=== PATIENT | female | born 1995 | race Caucasian/White ===

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

== ENCOUNTER 2019-05-24 04:47 | Observation (INO) | END 2019-05-24 05:03 | disposition home or self-care (01) | LOC: 1NENULAB | PROVIDERS: ADMIT Registered Nurse; ATTEND Registered Nurse ==

== ENCOUNTER 2019-06-02 06:00 | Inpatient (IN) ==
[2019-06-02] MEDS ORDERED: Metoclopramide 10 MG/2 ML VIAL IVP PRN (06:19)
[2019-06-02] MEDS ORDERED: miSOPROStoL 25 MCG TABLET PO PRN (06:19)
[2019-06-02] MEDS ORDERED: Famotidine 20 MG/2 ML VIAL IVP PRN (06:19)
[2019-06-02] MEDS ORDERED: *HR* Nalbuphine 10 MG/ML AMPUL IVP PRN (06:19)
[2019-06-02] MEDS ORDERED: Ondansetron 4 MG/2 ML VIAL IVP PRN (06:19)
[2019-06-02] MEDS ORDERED: Naloxone 0.4 MG/ML INJ IVP PRN (06:19)
[2019-06-02] MEDS ORDERED: Lidocaine 1% 20 ML MDV INFILT PRN (06:19)
[2019-06-02] MEDS ORDERED: Ringers Solution, Lactated 1,000 ML IVC SCH (06:30)
[2019-06-02 07:06] LABS: Basophils % 0.2 %; Eosinophils # 0.1 K/mcL (0.0-0.6); Hematocrit 34.6 % (35.3-44.9); Hemoglobin 11.2 g/dL (11.5-15.4); Immature Granulocytes % 0.5 % (0-4); Lymphocytes # 2.8 K/mcL (0.6-4.6); Lymphocytes % 26.6 %; Mean Corpuscular HGB Conc 32.4 g/dL (31.6-35.5); Mean Corpuscular Hemoglobin 25.5 pg (28.0-33.3); Mean Corpuscular Volume 78.6 fL (83.0-100.0); Mean Platelet Volume 10.4 fL (9.4-12.4); Monocytes # 0.7 K/mcL (0.0-1.3); Monocytes % 6.9 %; Neutrophils # 6.9 K/mcL (1.6-8.9); Platelet Count 196 K/mcL (140-400); Segmented Neutrophils % 64.8 %; White Blood Count 10.7 K/mcL (4.3-11.1)
[2019-06-02 07:20] LABS: Amphetamine Screen,Urine Negative ng/mL (Cutoff=1000); Barbiturate Screen,Urine Negative ng/mL (Cutoff=200); Benzodiazepines Screen,Urine Negative ng/mL (Cutoff=300); Cannabinoid Screen,Urine Negative ng/mL (Cutoff = 50); Cocaine Screen,Urine Negative ng/mL (Cutoff= 300); Opiate Screen,Urine Negative ng/mL (Cutoff=300); Phencyclidine Screen,Urine Negative ng/mL (Cutoff=25)
[2019-06-02] MEDS: Oxytocin 20 units/ LR 1000 mL 20 UNIT/1,000 ML BAG IVC SCH ×2 (08:42→20:08)
[2019-06-02] MEDS ORDERED: *HR* FentaNYL (PF) 100 MCG/2 ML VIAL ONE (15:56)
[2019-06-02] MEDS ORDERED: Bupivacaine/EPI 1:200k 0.25%PF 10 ML VIAL INFILT ONE (15:56)
[2019-06-02] MEDS ORDERED: Epidural Premix (fent/bupiv) 110 ML EP SCH (16:00)
[2019-06-02] MEDS ORDERED: Oxytocin 20 units/ LR 1000 mL 20 UNIT/1,000 ML BAG IVC SCH (21:55)
[2019-06-02] MEDS ORDERED: Lanolin 7 G OINT...G. TP PRN (21:55)
[2019-06-02] MEDS ORDERED: Benzocaine/Menthol 56 GM AEROSOL SPRAY TP PRN (21:55)
[2019-06-02] MEDS ORDERED: Rho Immune Globulin 1,500 UNIT SYRINGE IM PRN (21:55)
[2019-06-03] MEDS: Ibuprofen 600 MG TABLET PO SCH ×4 (00:32→08:25)
[2019-06-03] MEDS: Acetaminophen 325 MG TABLET PO SCH ×3 (00:32→13:41)
[2019-06-03 08:01] VITALS: BP 117/71
[2019-06-03] MEDS ORDERED: Famotidine 20 MG TABLET PO SCH (09:00)
[2019-06-03] MEDS ORDERED: Prenatal Vit/FA 1 EACH TABLET PO SCH (09:00)
== END 2019-06-03 18:25 | disposition home or self-care (01) | DRG 807 ==
LOC: 1NENULAB 06:17 → 1NENUOBS 20:47
PROVIDERS: ADMIT Advanced Practice Midwife; ATTEND Advanced Practice Midwife